=== PATIENT | male | born 1990 | race American Indian/Alaskan Native ===

== ENCOUNTER 2017-04-22 17:55 | Emergency (ER) | payer OTHER ==
[2017-04-23] MEDS ORDERED: NORCO 7.5/325 PO ONE (01:34)
[2017-04-23] MEDS ORDERED: FLEXERIL PO ONE (01:34)
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
[2017-04-23 03:01] VITALS: BP 122/61
== END 2017-04-23 02:40 | disposition home or self-care (01) ==
LOC: ED 17:55
DX: M79.1 Myalgia (principal); M54.5 Low back pain; V49.59XA Passenger injured in collision with other motor vehicles in traffic accident, initial encounter; Y93.9 Activity, unspecified; Y92.9 Unspecified place or not applicable; Y99.9 Unspecified external cause status
CPT/HCPCS: 99282